=== PATIENT | female | born 1970 | race Hispanic/Latino ===

== ENCOUNTER → 2016-10-05 | Outpatient (CLI) | payer BC | LOC: YCFC.O 09:20 | PROVIDERS: ATTEND Nurse Practitioner Family | DX: L83 Acanthosis nigricans (principal); Z13.29 Encounter for screening for other suspected endocrine disorder; Z13.220 Encounter for screening for lipoid disorders ==

== ENCOUNTER → 2018-01-05 | Outpatient (CLI) | payer BC | LOC: YCFC.O 08:25 | PROVIDERS: ATTEND Nurse Practitioner Family | DX: Z00.00 Encounter for general adult medical examination without abnormal findings (principal); Z13.220 Encounter for screening for lipoid disorders; R73.09 Other abnormal glucose ==

== ENCOUNTER → 2018-01-11 | Outpatient (CLI) | payer BC ==
--- NOTE | 2018-01-11 17:09 | RAD ---
Right elbow HISTORY: Lateral epicondylitis FINDINGS: Three views of right elbow demonstrate maintained bony alignment without fracture nor dislocation. Minimal curvilinear calcific or ossific findings adjacent to medial and lateral humeral epicondyles. Joint spaces are maintained. No soft tissue abnormality nor joint effusion is identified. IMPRESSION: Minimal medial and lateral epicondylitis in right elbow Electronically signed by: Richy Snider MD 01/11/2018 5:07 PM CDT
== END ==
LOC: RAD 14:32
PROVIDERS: ATTEND Nurse Practitioner Family
DX: M77.11 Lateral epicondylitis, right elbow (principal)

== ENCOUNTER → 2020-08-02 | Outpatient (CLI) | payer BC | LOC: GMA CAST 14:45 | PROVIDERS: ATTEND Family Medicine Sports Medicine | DX: D50.9 Iron deficiency anemia, unspecified (principal) ==

== ENCOUNTER 2020-09-06 11:22 | Emergency (ER) | payer BC ==
[2020-09-06] MEDS ORDERED: SODIUM CHLORIDE 0.9% (FLUSH) 10 ML SYG IV PRN (12:06)
[2020-09-06] MEDS ORDERED: ASPIRIN (CHEWABLE) 81 MG TAB PO ONE (12:06)
[2020-09-06] MEDS ORDERED: NITROGLYCERIN 2% 1 GM UD TOP ONE (12:09)
--- NOTE | 2020-09-06 12:42 | RAD ---
EXAM DESCRIPTION: Chest,1 View CLINICAL HISTORY: Chest pain COMPARISON: February 20, 2015 TECHNIQUE: One view radiograph of the chest FINDINGS: Cardiac silhouette shows normal heart size. Pulmonary vascularity is within normal limits. Lungs show no confluent infiltrates. No pleural effusion. No pneumothorax. No acute osseous abnormality. IMPRESSION: No acute cardiopulmonary process. Electronically signed by: Hector Butts MD 09/06/2020 12:36 PM [facility]
--- NOTE | 2020-09-06 14:11 | ED.PDOC ---
History of Present Illness - General Chief Complaint: Chest Pain/WA Stated Complaint: CP, nauesea, dizzy Time Seen by Provider: 09/06/20 12:06 Source: patient, RN notes reviewed, Vital Signs reviewed, family - daughter Exam Limitations: no limitations - History of Present Illness Initial Comments: Patient is a 50-year-old female who presents from work with complaints of chest pain. This pain started about 10:00 this morning when she was loading heavy boxes at work at [employer]. The pain was sharp and prickly in nature. Worse with deep inspiration. Worse with movement. There was no radiation of the pain. The pain was moderate in intensity. The pain was constant. Patient denied any headache, blurry vision. Patient does have some dizziness and this was worse flu at the chest pain. Patient denies any shortness of breath, nausea, vomiting or diarrhea. Timing/Duration: 1-3 hours Severity: moderate Location: central Activities at Onset: activity Prior Chest Pain/Cardiac Workup: no prior chest pain, no prior cardiac workup Improving Factors: nothing Worsening Factors: movement Nitro Today/Relief: provided by ED Aspirin Treatment Today: provided by ED Associated Symptoms: malaise Allergies/Adverse Reactions: Allergies NO KNOWN ALLERGY Allergy (Unverified 04/22/14 12:55) Home Medications: Ambulatory Orders Tramadol HCl [Ultram] 50 mg PO Q4HR #20 tab 04/22/14 Tramadol HCl [Ultram] 50 mg PO Q6H #12 tab 09/06/20 Review of Systems - Review of Systems Constitutional: States: see HPI, malaise, weakness. Denies: chills, fever EENTM: States: no symptoms reported. Denies: eye pain, blurred vision, ear pain Respiratory: States: no symptoms reported. Denies: cough, short of breath, stridor, wheezing Cardiology: States: see HPI, chest pain. Denies: palpitations, syncope Gastrointestinal/Abdominal: States: no symptoms reported. Denies: abdominal pain, diarrhea, nausea, vomiting Genitourinary: States: no symptoms reported. Denies: dysuria, frequency Musculoskeletal: States: see HPI, other - anterior chest pain Skin: States: no symptoms reported. Denies: change in color, rash Neurological: States: see HPI, anxiety, weakness. Denies: depressed, headache, numbness, paresthesia, tingling, tremors Endocrine: States: no symptoms reported. Denies: increased hunger, increased thirst, increased urine Hematologic/Lymphatic: States: no symptoms reported. Denies: blood clots, easy bleeding All other Systems: Reviewed and Negative Past Medical History (General) - Patient Medical History Hx Seizures: No Hx Stroke: No Hx Dementia: No Hx Asthma: No Hx of COPD: No Hx Cardiac Disorders: Yes - Congenital heart defect (hole) Hx Congestive Heart Failure: No Hx Pacemaker: No Hx Hypertension: No Hx Thyroid Disease: No Hx Diabetes: No Hx Gastroesophageal Reflux: No Hx Renal Disease: No Hx Cancer: No Hx of HIV: No Hx MRSA: No Surgical History: appendectomy, other - Vaccination History Hx Influenza Vaccination: Yes Hx Pneumococcal Vaccination: No - Social History Hx Tobacco Use: No Hx Alcohol Use: No Hx Substance Use: No Hx Substance Use Treatment: No Hx Depression: No - Female History Patient is a Female of Child Bearing Age (10 -59 yrs old): Yes Patient : No Family Medical History - Family History Mother Family History: No Known Physical Exam - Physical Exam General Appearance: Alert, Anxious, Obvious distress, Obese, Well Developed, Well Groomed, Well Hydrated, Well Nourished Eyes, Ears, Nose, Throat Exam: PERRL/EOMI, normal ENT inspection, pharynx normal Neck: non-tender, full range of motion, supple, normal inspection Respiratory: lungs clear, normal breath sounds, no respiratory distress, no accessory muscle use, other - Tenderness to palpation along the left sternal border. No crepitus. Cardiovascular/Chest: normal peripheral pulses, regular rate, rhythm, no edema, no gallop, no JVD, no murmur Peripheral Pulses: radial,right: 2+, radial,left: 2+ Gastrointestinal/Abdominal: normal bowel sounds, non tender, soft, no organomegaly, no pulsatile mass Extremity: normal range of motion, non-tender, normal inspection, no pedal edema, no calf tenderness Neurologic: underwriting support specialist II-XII nml as tested, no motor/sensory deficits, alert, normal mood/affect, oriented x 3 Skin Exam: normal color, warm/dry Lymphatic: no adenopathy Progress - Progress Progress: Differential diagnosis: Acute coronary syndrome, pneumonia, costochondritis, anxiety among others 09/06/20 15:49 Lab work is unremarkable. EKG is negative. Chest x-ray does not show any cardiopulmonary disease. Patient's heart score is 2. Patient is low risk for MACE with her risk factor of 1% at 30 days. I discussed this with the patient and her daughter. I have recommended follow-up with PCP next week for referral to cardiology for a stress test. They voiced understanding and agreement with plan of care. Patient's chest pain resolved. Larry Hodges M.D. #[id number] - Results/Orders Results/Orders: EXAM DESCRIPTION: Chest,1 View CLINICAL HISTORY: Chest pain COMPARISON: February 20, 2015 TECHNIQUE: One view radiograph of the chest FINDINGS: Cardiac silhouette shows normal heart size. Pulmonary vascularity is within normal limits. Lungs show no confluent infiltrates. No pleural effusion. No pneumothorax. No acute osseous abnormality. IMPRESSION: No acute cardiopulmonary process. Electronically signed by: Hector Butts MD 09/06/2020 12:36 PM [facility] EKG performed 06 September 2020 at 1136 hrs.: Normal sinus rhythm at 81 bpm, normal axis deviation, no ST or T wave changes, normal EKG 09/06/20 12:06 Sodium Chloride 0.9% (Flush) [Saline Flush Syringe] 3 ml IV PRN PRN 09/06/20 12:07 Pulse Oximetry Assessment DAILY 09/06/20 12:15 EKG STAT 09/07/20 09:00 Pulse Ox Daily Laboratory Results - last 24 hr 09/06/20 09/06/20 09/06/20 12:25 12:25 12:25 WBC 10.9 H RBC 4.65 Hgb 14.4 Hct 41.0 MCV 88.2 MCH 30.9 MCHC 35.1 RDW 13.6 Plt Count 329 MPV 8.7 Absolute Neuts (auto) 8.60 H Absolute Lymphs (auto) 1.70 Absolute Monos (auto) 0.40 Absolute Eos (auto) 0.10 Absolute Basos (auto) 0.10 Neutrophils % 78.6 H Lymphocytes % 15.8 L Monocytes % 3.9 Eosinophils % 0.8 L Basophils % 0.9 PT 10.2 INR 1.03 PTT (SP) 27.0 Sodium 141 Potassium 3.7 Chloride 105 Carbon Dioxide 24 Anion Gap 15.7 BUN 15 Creatinine 0.64 BUN/Creatinine Ratio 23.4 H Random Glucose 93 Serum Osmolality 281.8 Calcium 9.1 Magnesium 2.3 Total Bilirubin 0.7 Direct Bilirubin 0.1 Indirect Bilirubin 0.6 AST 39 ALT 49 Alkaline Phosphatase 67 Creatine Kinase 300 H* CK-MB (CK-2) 2.6 CK-MB (CK-2) % Not Reportable Troponin I < 0.02 Serum Total Protein 8.3 H Albumin 4.6 TSH 1.60 Urine Color Urine Appearance Urine pH Ur Specific [place] Urine Protein Urine Glucose (UA) Urine Ketones Urine Blood Urine Nitrite Urine Bilirubin Urine Urobilinogen Ur Leukocyte Esterase Urine RBC Urine WBC Ur Epithelial Cells Urine Bacteria 09/06/20 09/06/20 14:17 14:23 WBC RBC Hgb Hct MCV MCH MCHC RDW Plt Count MPV Absolute Neuts (auto) Absolute Lymphs (auto) Absolute Monos (auto) Absolute Eos (auto) Absolute Basos (auto) Neutrophils % Lymphocytes % Monocytes % Eosinophils % Basophils % PT INR PTT (SP) Sodium Potassium Chloride Carbon Dioxide Anion Gap BUN Creatinine BUN/Creatinine Ratio Random Glucose Serum Osmolality Calcium Magnesium Total Bilirubin Direct Bilirubin Indirect Bilirubin AST ALT Alkaline Phosphatase Creatine Kinase 264 H* CK-MB (CK-2) 2.4 CK-MB (CK-2) % Not Reportable Troponin I < 0.02 Serum Total Protein Albumin TSH Urine Color Yellow Urine Appearance Clear Urine pH 6.0 Ur Specific [place] 1.020 Urine Protein Negative Urine Glucose (UA) Negative Urine Ketones Trace Urine Blood Negative Urine Nitrite Negative Urine Bilirubin Negative Urine Urobilinogen 0.2 Ur Leukocyte Esterase Negative Urine RBC 0-1 Urine WBC 0 Ur Epithelial Cells 1-3 Urine Bacteria 0 Vital Signs 09/06/20 09/06/20 09/06/20 11:25 11:38 12:06 Temperature 98.3 F Pulse Rate [ 78 78 Pulse ox] Respiratory 18 18 Rate Blood Pressure 145/117 [R arm] O2 Sat by Pulse 97 98 Oximetry Departure - Departure Clinical Impression: Atypical chest pain, Costochondritis Time of Disposition: 15:55 Disposition: Discharge to Home or Self Care Condition: Good Departure Forms: ED Discharge - Pt. Copy, Patient Portal Self Enrollment Instructions: DI for Chest Pain, Chest Pain That Is Not Caused by the Heart (D C), Costochondritis (DC) Diet: resume usual diet Activity: increase activity as tolerated Referrals: Yadiel Rmairez MD [Primary Care Provider] - 1-5 Days Prescriptions: Tramadol HCl [Ultram] 50 mg PO Q6H #12 tab Home Medications: Ambulatory Orders Tramadol HCl [Ultram] 50 mg PO Q4HR #20 tab 04/22/14 Tramadol HCl [Ultram] 50 mg PO Q6H #12 tab 09/06/20 Additional Instructions: Pt to f/u with pcp for out patient stress test.
[2020-09-06] MEDS ORDERED: ONDANSETRON INJ 4 MG/2 ML VIAL IV ONE (14:58)
[2020-09-06] MEDS ORDERED: MORPHINE SULFATE INJ 10 MG/ML VIAL IV ONE (14:58)
[2020-09-06 16:07] VITALS: BP 159/90; TEMP 97.8; O2SAT 97
== END 2020-09-06 16:07 | disposition home or self-care (01) ==
LOC: ER 11:22
DX: R07.89 Other chest pain (principal); M94.0 Chondrocostal junction syndrome [Tietze]; R42 Dizziness and giddiness; R53.1 Weakness; R53.81 Other malaise; I51.89 Other ill-defined heart diseases
CPT/HCPCS: 36415; 71045; 80048; 80076; 81001; 82550; 82553; 84443; 84484; 85025; 85610; 85730; 93005; 94760; J2270; J2405